=== PATIENT | female | born 1975 ===

== ENCOUNTER 2021-08-11 16:19 | Emergency (ER) | payer OTHER | END 2021-08-11 18:47 | disposition left against medical advice (07) | LOC: ER 16:20 | DX: S61.219A Laceration without foreign body of unspecified finger without damage to nail, initial encounter (principal); Z53.21 Procedure and treatment not carried out due to patient leaving prior to being seen by health care provider; X58.XXXA Exposure to other specified factors, initial encounter; Y93.9 Activity, unspecified; Y92.9 Unspecified place or not applicable; Y99.9 Unspecified external cause status ==